=== PATIENT | male | born 1955 | race Caucasian/White ===

== ENCOUNTER 2016-12-22 12:22 | Emergency (ER) | payer BC ==
[2016-12-22 14:48] VITALS: BP 145/100
--- NOTE | 2016-12-22 15:10 | UC ---
Lianne Ruiz Erika, scribed for Maia Dias MD on 12/22/16 at 1454 . Psychiatric Complaint HPI - HPI Summary HPI Summary: Patient is a 61-year-old male presenting to [facility] with a CC of anxiety starting last night. Patient reports a Hx anxiety, and takes lexapro and buspar. He denies recent changes to these medications. Patient reports that anxiety started around when pt was talking about custodial last night. Patient reports he was unable to sleep last night due to the anxiety, and states it felt difficult to breathe and focus as well. Currently, patient denies any SOB and chest pain, and states he feels much improved. He denies any pain. Patient denies any thoughts of harming self or others. denies thoughts of feeling that pt is unsafe at home. Hx anxiety, HTN, prostatectomy due to prostate CA. - History Of Current Complaint Chief Complaint: UCGeneralIllness Stated Complaint: ANXIETY Hx Obtained From: Patient, Family/Funeral Assistant - Onset/Duration: Gradual Onset, Lasting Hours, Still Present - significantly improved Timing: Constant Severity Initially: Moderate Severity Currently: Mild Character: Anxious Aggravating Factor(s): Recent Stress Associated Signs And Symptoms: Sleep Disturbance Related History: Positive For: Prior Psychiatric Issues - anxiety - Risk Factor(s) Completed Suicide Risk Factors: Male - Allergies/Home Medications Allergies/Adverse Reactions: Allergies Allergy/AdvReac Type Severity Reaction Status Date / Time No Known Allergies Allergy Verified 12/22/16 14:29 Home Medications: Home Medications Escitalopram (NF) [Lexapro (NF)] 10 mg PO BEDTIME 12/22/16 [History Confirmed ] Valsartan/HCTZ 160/25(NF) [Diovan Hct 160/25(NF)] 1 tab PO DAILY 12/22/16 [ History Confirmed 12/22/16] busPIRone TAB* [Buspar TAB *] 15 mg PO BID 12/22/16 [History Confirmed 12/22/16] PMH/Surg Hx/FS Hx/Imm Hx Cardiovascular History Of: Reports: Hypertension Psychological History Of: Reports: Anxiety Cancer History Of: Reports: Prostate Cancer - Surgical History Surgical History: Yes Surgery Procedure, Year, and Place: 2014 Prostate removed - Family History Known Family History: Positive: Other - Prostate CA, father; Mother had anxiety issues - Social History Occupation: Employed Full-time Lives: With Family Alcohol Use: Daily Substance Use Type: None Smoking Status (MU): Never Smoked Tobacco - Immunization History Most Recent Influenza Vaccination: None Most Recent Tetanus Shot: UTD Most Recent Pneumonia Vaccination: None Review of Systems Constitutional: Negative Skin: Negative Eyes: Negative ENT: Negative Respiratory: Other - [place] like difficulty breathing, resolved Cardiovascular: Negative Gastrointestinal: Negative Genitourinary: Negative Motor: Negative Neurovascular: Negative Musculoskeletal: Negative Neurological: Negative Psychological: Anxious - with difficulty focusing and sleeping All Other Systems Reviewed And Are Negative: Yes Physical Exam Triage Information Reviewed: Yes Appearance: Well-Appearing, No Pain Distress, Well-Nourished Vital Signs: Initial Vital Signs Temp 98.7 F 12/22/16 14:32 Pulse 87 12/22/16 14:32 Resp 18 12/22/16 14:32 BP 147/113 12/22/16 14:32 Pulse Ox 100 12/22/16 14:32 elevated BP noted, manual BP similar, but decreased. Pt is asymptomatic. Vital Signs Reviewed: Yes Eyes: Positive: Conjunctiva Clear, Other: - PERRL, EOMI ENT: Positive: Normal ENT inspection Neck: Positive: Supple Respiratory: Positive: Lungs clear, Normal breath sounds, No respiratory distress Cardiovascular: Positive: RRR, No Murmur, Pulses Normal, Brisk Capillary Refill Musculoskeletal: Positive: Strength Intact, ROM Intact Neurological: Positive: Alert, Muscle Tone Normal Psychological Exam: Normal Skin Exam: Normal Psych Complaint Course/Dx - Differential Dx/Diagnosis Differential Diagnosis/HQI/PQRI: Acute Psychosis, Anxiety, Bipolar Disorder, Suicidal Ideation Provider Diagnoses: 1. Generalized anxiety disorder, acute exacerbation. 2. Blood pressure in poor control Discharge - Discharge Plan Condition: Stable Disposition: HOME Prescriptions: clonazePAM TAB(*) [Klonopin TAB(*)] 1 mg PO BEDTIME PRN #5 tab MDD 1 PRN Reason: Insomnia Patient Education Materials: Anxiety (ED) Referrals: Loyd Doherty MD [Medical Doctor] - 2 Days Additional Instructions: Dr. Dias has advised you to follow up for the hypertension and anxiety definitely this week. RETURN TO URGENT CARE FOR ANY NEW OR WORSENING SYMPTOMS. The documentation as recorded by the Lianne adame Erika accurately reflects the service I personally performed and the decisions made by Arun juarez Barbara J, MD.
== END 2016-12-22 15:00 | disposition home or self-care (01) ==
LOC: UCEAST 12:22
DX: F41.1 Generalized anxiety disorder (principal); I10 Essential (primary) hypertension; Z85.46 Personal history of malignant neoplasm of prostate
CPT/HCPCS: 99212; G0463

== ENCOUNTER 2017-04-15 07:49 | Emergency (ER) | payer BC ==
--- NOTE | 2017-04-15 08:12 | UC ---
General HPI - HPI Summary HPI Summary: complaint of insect of his left forearm that he noticed last night at 7PM unsure if it was a tick bite -didn't find a tick bite is extremely itchy concerned about getting lyme disease - History of Current Complaint Chief Complaint: ULYSSESkin Stated Complaint: TICK BITE Time Seen by Provider: 04/15/17 08:05 Hx Obtained From: Patient - Allergy/Home Medications Allergies/Adverse Reactions: Allergies Allergy/AdvReac Type Severity Reaction Status Date / Time No Known Allergies Allergy Verified 04/15/17 08:00 Home Medications: Home Medications Cetirizine* [ZyrTEC 10 MG TAB*] 1 tab PO DAILY 04/15/17 [History Confirmed 04/15] Multiple Vitamin [Multi Vitamin] 1 tab PO DAILY 04/15/17 [History Confirmed 08/22] PMH/Surg Hx/FS Hx/Imm Hx Previously Healthy: Yes Cardiovascular History: Hypertension Psychological History: Anxiety - Surgical History Surgical History: Yes Surgery Procedure, Year, and Place: 2014 Prostate removed; cyst removed from head - Family History Known Family History: Positive: Other - Prostate CA, father; Mother had anxiety issues Negative: Cardiac Disease, Hypertension, Diabetes - Social History Occupation: Employed Full-time Lives: With Family Alcohol Use: Daily Alcohol Amount: 1-2 drinks daily Substance Use Type: None Smoking Status (MU): Never Smoked Tobacco - Immunization History Most Recent Influenza Vaccination: None Most Recent Tetanus Shot: UTD Most Recent Pneumonia Vaccination: None Review of Systems Constitutional: Negative Skin: Rash Eyes: Negative ENT: Negative Respiratory: Negative Cardiovascular: Negative Gastrointestinal: Negative Genitourinary: Negative Motor: Negative Neurovascular: Negative Musculoskeletal: Negative Neurological: Negative Psychological: Negative All Other Systems Reviewed And Are Negative: Yes Physical Exam Triage Information Reviewed: Yes Appearance: Well-Appearing, No Pain Distress, Well-Nourished Vital Signs: Initial Vital Signs Temp 97.2 F 04/15/17 07:56 Pulse 78 04/15/17 07:56 Resp 16 04/15/17 07:56 BP 124/90 04/15/17 07:56 Pulse Ox 100 04/15/17 07:56 Vital Signs Reviewed: Yes Eyes: Positive: Conjunctiva Clear ENT: Positive: Pharynx normal, TMs normal Neck: Positive: No Lymphadenopathy Respiratory: Positive: Lungs clear, Normal breath sounds, No respiratory distress, No accessory muscle use Cardiovascular: Positive: RRR, No Murmur, Pulses Normal Abdomen Description: Positive: Nontender, Soft Bowel Sounds: Positive: Present Musculoskeletal: Positive: No Edema Neurological: Positive: Alert Psychological Exam: Normal Skin: Positive: rashes - left forearm- 1.5x1.5 cm area of erythema- no induration Course/Dx - Course Course Of Treatment: exam completed. rash appears to be insect bite without infection no evidence for tick bite. prophylaxis given as precaution - Differential Dx - Multi-Symptom Provider Diagnoses: insect bite Discharge - Discharge Plan Condition: Stable Disposition: HOME Prescriptions: DOXYcycline CAP(*) [DOXYcycline 100MG CAP(*)] 100 mg PO DAILY #2 cap Patient Education Materials: Tick Bite (ED), Insect Bite or Sting (ED) Referrals: No Primary Care Phys,NOPCP [Medical Doctor] - Loyd Doherty MD [Primary Care Provider] - Additional Instructions: Please start antibiotic as directed Increase fluids and rest Take acetaminophen or ibuprofen for fever or pain Please review your discharge instructions. If your symptoms do not improve please call your primary care provider or return to urgent care.
[2017-04-15 08:13] VITALS: BP 124/90
== END 2017-04-15 08:24 | disposition home or self-care (01) ==
LOC: UCEAST 07:49
DX: S50.862A Insect bite (nonvenomous) of left forearm, initial encounter (principal); W57.XXXA Bitten or stung by nonvenomous insect and other nonvenomous arthropods, initial encounter; Y93.9 Activity, unspecified; Y92.9 Unspecified place or not applicable; Y99.9 Unspecified external cause status
CPT/HCPCS: 99212; G0463

== ENCOUNTER 2019-02-25 13:59 | Emergency (ER) | payer BC ==
[2019-02-25 16:10] VITALS: BP 113/71
--- NOTE | 2019-02-25 16:16 | UC ---
Knee Pain HPI - HPI Summary HPI Summary: 63 yo male presents with RIGHT knee pain. He tells me that about a month ago he was doing a lot of yard work and constantly going from a squatting to a standing position. Since that time he has noticed stiffness to his right knee after periods of rest. No specific injury. Has not noticed any swelling or instability of the knee. Pain is located behind the kneecap. Has been taking tylenol with no relief. - History of Current Complaint Chief Complaint: UCLowerExtremity Stated Complaint: KNEE PAIN Time Seen by Provider: 02/25/19 16:15 Hx Obtained From: Patient Onset/Duration: Gradual Onset Severity Initially: Mild Severity Currently: Mild Pain Intensity: 3 Pain Scale Used: 0-10 Numeric - Allergies/Home Medications Allergies/Adverse Reactions: Allergies Allergy/AdvReac Type Severity Reaction Status Date / Time No Known Allergies Allergy Verified 02/25/19 16:10 PMH/Surg Hx/FS Hx/Imm Hx Cardiovascular History: Hypertension Psychological History: Anxiety, Depression - Surgical History Surgical History: Yes Surgery Procedure, Year, and Place: 2014 Prostate removed; cyst removed from head - Family History Known Family History: Positive: Other - Prostate CA, father; Mother had anxiety issues Negative: Cardiac Disease, Hypertension, Diabetes - Social History Occupation: Employed Full-time Lives: With Family Alcohol Use: Daily Alcohol Amount: 1-2 drinks daily Substance Use Type: None Smoking Status (MU): Never Smoked Tobacco - Immunization History Most Recent Influenza Vaccination: None Most Recent Tetanus Shot: UTD Most Recent Pneumonia Vaccination: None Review of Systems All Other Systems Reviewed And Are Negative: Yes Constitutional: Positive: Negative Skin: Positive: Negative Respiratory: Positive: Negative Cardiovascular: Positive: Negative Neurovascular: Positive: Negative Musculoskeletal: Positive: Other: - Right knee pain Neurological: Positive: Negative Psychological: Positive: Negative Physical Exam - Summary Physical Exam Summary: GENERAL: NAD. WDWN. No pain distress. SKIN: No rashes, sores, lesions, or open wounds. CHEST: No accessory muscle use. Breathing comfortably and in no distress. CV: . Pulses intact popliteal, PT, and DP. Cap refill <2seconds MSK: RIGHT KNEE: Mild patella crepitus. NTTP joint line. FROM. Strength 5/5. No edema or obvious bony deformities. Negative Lauri, A/P drawer, Cal[place], and varus/valgus stress. NEURO: Alert. Sensations intact and symmetric B/L LEs PSYCH: Age appropriate behavior. Triage Information Reviewed: Yes Vital Signs: Initial Vital Signs Temp 99.1 F 02/25/19 16:06 Pulse 95 02/25/19 16:06 Resp 16 02/25/19 16:06 BP 113/71 02/25/19 16:06 Pulse Ox 98 02/25/19 16:06 Vital Signs Reviewed: Yes Knee Pain Course/Dx - Course Course Of Treatment: Suspect patellofemoral syndrome and advised pt to continue tylenol and rest. Will refer to ortho and PT for further eval. - Differential Dx/Diagnosis Provider Diagnosis: Patellofemoral joint pain Discharge - Sign-Out/Discharge Documenting (check all that apply): Patient Departure All imaging exams completed and their final reports reviewed: No Studies - Discharge Plan Condition: Stable Disposition: HOME Patient Education Materials: Patellofemoral Pain Syndrome (ED) Referrals: Loyd Doherty MD [Primary Care Provider] - Malka Shen MD [Medical Doctor] - As Soon As Possible Additional Instructions: If you develop a fever, shortness of breath, chest pain, new or worsening symptoms - please call your PCP or go to the ED immediately. 1) Please call Orthopedics at the number below to schedule an appointment regarding your knee pain 2) May also schedule an appointment with Physical Therapy - you have been given a prescription for this today that you may take to a facility of your choosing. - Billing Disposition and Condition Condition: STABLE Disposition: Home
== END 2019-02-25 16:40 | disposition home or self-care (01) ==
LOC: UCEAST 13:59
DX: M25.561 Pain in right knee (principal); I10 Essential (primary) hypertension
CPT/HCPCS: 99211; G0463

== ENCOUNTER 2022-03-18 12:44 | Observation (INO) ==
[2022-03-18] MEDS ORDERED: NS 0.9% 1000 ml BAG 1,000 ML IV ONE (13:49)
[2022-03-18 14:13] LABS: ABS Basophils 0.1 10^3/ul (0-0.2); ABS Eosinophils 0.1 10^3/ul (0-0.6); ABS Lymphocytes 1.2 10^3/ul (1.0-4.8); ABS Monocytes 0.5 10^3/ul (0-0.8); ABS Neutrophils 2.8 10^3/ul (1.5-7.7); Eosinophil % 1.3 %; Hematocrit 34 % (42-52); Hemoglobin 11.8 g/dL (14.0-18.0); Lymphocyte % 26.1 %; Mean Corpuscular HGB Conc 34 g/dL (31-36); Mean Corpuscular Hemoglobin 30 pg (27-31); Mean Corpuscular Volume 89 fL (80-94); Mean Platelet Volume 8.4 fL (7.4-10.4); Nucleated Red Blood Cells % 0.1; Platelet Count 206 10^3/uL (150-450); Red Blood Count 3.88 10^6 /uL (4.18-5.48); Red Cell Distribution Width 13 % (10-15); White Blood Count 4.7 10^3/uL (3.5-10.8)
[2022-03-18 14:49] LABS: PSA Screening Total < 0.008 ng/mL (0-4.000)
[2022-03-18 14:52] LABS: ALT 31 U/L (7-52); AST 17 U/L (13-39); Albumin 3.7 g/dL (3.2-5.2); Albumin/Globulin Ratio 1.5 (1-3); Alcohol, S < 13 mg/dL (<13); Alkaline Phosphatase 93 U/L (35-149); Anion Gap 8 mmol/L (2-11); Blood Urea Nitrogen 29 mg/dL (6-24); C Reactive Protein 8.92 mg/L (<8.01); CO2 Carbon Dioxide 22 mmol/L (22-32); Calcium 8.9 mg/dL (8.6-10.3); Chloride 111 mmol/L (101-111); Globulin 2.5 g/dL (2-4); Glucose 88 mg/dL (70-100); Magnesium 1.9 mg/dL (1.9-2.7); Potassium 4.1 mmol/L (3.5-5.0); Sodium 141 mmol/L (135-145); Total Protein 6.2 g/dL (6.4-8.9); eGFR CKD-EPI 45.4 (>60)
[2022-03-18 14:53] LABS: TSH Ultra Thyroid Stim Horm 2.23 mcIU/mL (0.34-5.60)
[2022-03-18 15:24] LABS: Urine Appearance Clear; Urine Bacteria Absent (Absent); Urine Bilirubin Negative (Negative); Urine Blood Negative (Negative); Urine Color Yellow; Urine Glucose Negative (Negative); Urine Ketones 1+ (Negative); Urine Nitrite Negative (Negative); Urine Protein 1+(30 mg/dL) (Negative); Urine Red Blood Cell 2+(6-10/hpf) (Absent); Urine Specific Gravity 1.026 (1.002-1.030); Urine Urobilinogen Positive (Negative); Urine White Blood Cell Trace(0-5/hpf) (Absent)
[2022-03-18 15:43] LABS: Erythrocyte Sed Rate 30 mm/Hr (0-19)
[2022-03-18] MEDS ORDERED: Enoxaparin 40 MG/0.4 ML SYR SUBCUT SCH (17:00)
[2022-03-18 17:41] LABS: Folate 14.43 ng/mL (5.90-24.80)
[2022-03-18 17:43] LABS: Vitamin B12 387 pg/mL (180-914)
[2022-03-18] MEDS ORDERED: Acyclovir IV 800 MG in NS 0.9% 250 ml 250 ML IVPB ONE (18:30)
[2022-03-19] MEDS ORDERED: Acyclovir IV 800 MG in NS 0.9% 250 ml 250 ML IVPB SCH ×2 (05:00→05:30)
[2022-03-19 06:03] LABS: ABS Eosinophils 0.1 10^3/ul (0-0.6); ABS Lymphocytes 1.2 10^3/ul (1.0-4.8); ABS Monocytes 0.5 10^3/ul (0-0.8); ABS Neutrophils 2.8 10^3/ul (1.5-7.7); Eosinophil % 2.1 %; Hematocrit 31 % (42-52); Hemoglobin 10.9 g/dL (14.0-18.0); Lymphocyte % 25.6 %; Mean Corpuscular HGB Conc 35 g/dL (31-36); Mean Corpuscular Hemoglobin 31 pg (27-31); Mean Corpuscular Volume 89 fL (80-94); Mean Platelet Volume 7.8 fL (7.4-10.4); Platelet Count 194 10^3/uL (150-450); Red Cell Distribution Width 13 % (10-15); White Blood Count 4.7 10^3/uL (3.5-10.8)
[2022-03-19 06:32] LABS: HDL Cholesterol 16.9 mg/dL
[2022-03-19 06:33] LABS: Calcium 8.4 mg/dL (8.6-10.3); Potassium 4.4 mmol/L (3.5-5.0); eGFR CKD-EPI 41.5 (>60)
[2022-03-19] MEDS ORDERED: Iohexol 350 (CONTRAST) 500 ML MDV IV ONE (06:39)
[2022-03-19] MEDS ORDERED: Lactated Ringers 1000 ml BAG 1,000 ML IV ONE (06:56)
[2022-03-19 09:33] LABS: Ferritin 608.6 ng/mL (24-336)
[2022-03-19] MEDS ORDERED: Enoxaparin 40 MG/0.4 ML SYR SUBCUT SCH (17:00)
[2022-03-20 06:02] LABS: ABS Eosinophils 0.1 10^3/ul (0-0.6); ABS Lymphocytes 1.5 10^3/ul (1.0-4.8); ABS Monocytes 0.5 10^3/ul (0-0.8); ABS Neutrophils 4.2 10^3/ul (1.5-7.7); Eosinophil % 1.8 %; Hematocrit 36 % (42-52); Hemoglobin 12.1 g/dL (14.0-18.0); Lymphocyte % 23.3 %; Mean Corpuscular HGB Conc 34 g/dL (31-36); Mean Corpuscular Hemoglobin 30 pg (27-31); Mean Corpuscular Volume 90 fL (80-94); Nucleated Red Blood Cells % 0.1; Platelet Count 290 10^3/uL (150-450); Red Blood Count 4.01 10^6 /uL (4.18-5.48); Red Cell Distribution Width 13 % (10-15); White Blood Count 6.4 10^3/uL (3.5-10.8)
[2022-03-20 06:31] LABS: Potassium 3.7 mmol/L (3.5-5.0); eGFR CKD-EPI 43.5 (>60)
[2022-03-20 11:17] VITALS: BP 147/95
[2022-03-21 01:02] LABS: Anaplasma phagocytophilum Negative (Negative); B. miyamotoi PCR, B Negative (Negative); Babesia divergens/MO-1 Negative (Negative); Babesia ducani Negative (Negative); Ehrlichia chaffeensis Negative (Negative); Ehrlichia ewingii/canis Negative (Negative); Ehrlichia muris eauclairensis Negative (Negative)
== END 2022-03-20 15:33 | disposition home or self-care (01) ==
LOC: EDHOLD 12:44 → ED 12:44 → SUATTDRO 16:37 → EDHOLD 18:35 → MEDTELE 19:13
PROVIDERS: ADMIT Student in an Organized Health Care Education/Training Program; ATTEND Internal Medicine

== ENCOUNTER 2022-11-30 03:28 | Inpatient (IN) ==
[2022-11-30 04:37] LABS: Urine Appearance Clear; Urine Bilirubin Negative (Negative); Urine Blood Negative (Negative); Urine Color Yellow; Urine Glucose Negative (Negative); Urine Ketones Negative (Negative); Urine Nitrite Negative (Negative); Urine Protein 3+(>=500 mg/dL) (Negative); Urine Specific Gravity 1.025 (1.002-1.030); Urine Urobilinogen Negative (Negative)
[2022-11-30 04:39] LABS: Hematocrit 34 % (42-52); Hemoglobin 11.4 g/dL (14.0-18.0); Mean Corpuscular HGB Conc 34 g/dL (31-36); Mean Corpuscular Hemoglobin 30 pg (27-31); Mean Corpuscular Volume 90 fL (80-94); Mean Platelet Volume 8.9 fL (7.4-10.4); Platelet Count 63 10^3/uL (150-450); Red Blood Count 3.79 10^6 /uL (4.18-5.48); Red Cell Distribution Width 14 % (10-15); White Blood Count 5.9 10^3/uL (3.5-10.8)
[2022-11-30 04:40] LABS: Urine Bacteria Absent (Absent); Urine Red Blood Cell Absent (Absent); Urine White Blood Cell Trace(0-5/hpf) (Absent)
[2022-11-30 04:45] LABS: Activated Partial Thrombo Time 27.5 seconds (26.0-38.0); INR 1.5 (0.88-1.18)
[2022-11-30 05:11] LABS: Albumin 3.5 g/dL (3.2-5.2); Albumin/Globulin Ratio 1.4 (1-3); C Reactive Protein 163.38 mg/L (<8.01); Calcium 8.7 mg/dL (8.6-10.3); Creatinine, Serum 1.72 mg/dL (0.67-1.17); Globulin 2.5 g/dL (2-4); Potassium 3.8 mmol/L (3.5-5.0); Total Bilirubin 1.4 mg/dL (0.2-1.0); eGFR CKD-EPI 43.6 (>60)
[2022-11-30 05:53] LABS: ABS Lymphocytes 0.7 10^3/ul (1.0-4.8); ABS Monocytes 1.5 10^3/ul (0-0.8); ABS Neutrophils 3.6 10^3/ul (1.5-7.7); Eosinophil % 0.1 %; Lymphocyte % 11.4 %; Nucleated Red Blood Cells % 0.1; RBC Morphology Normal (Normal)
[2022-11-30 05:56] LABS: High Sensitivity Troponin 1 Hr 7 pg/mL (<20)
[2022-11-30] MEDS ORDERED: cefTRIAXone 1 gm/50 mL D5W 1 GM/50 ML BAG IV ONE (06:55)
[2022-11-30] MEDS ORDERED: Azithromycin 500 mg/250 ml NS 500 MG/250 ML BAG IVPB ONE (06:55)
[2022-11-30 07:01] LABS: RBC Parasite Smear No Parasites Seen (No Parasite)
[2022-11-30] MEDS ORDERED: Lactated Ringers 1000 ml BAG 1,000 ML IV ONE (07:12)
[2022-11-30] MEDS ORDERED: Iodixanol (CONTRAST) 320 MG/ML 100 ML SDV IV ONE (07:48)
[2022-11-30] MEDS ORDERED: Polyethylene Glycol 3350 17 GM PACKET PO PRN (11:11)
[2022-11-30] MEDS ORDERED: Magnesium Hydroxide LIQ 30 ML UDC PO PRN (11:11)
[2022-11-30] MEDS ORDERED: Senna TAB 8.6 mg TAB PO PRN (11:11)
[2022-11-30] MEDS ORDERED: cefTRIAXone 1 gm/50 mL D5W 1 GM/50 ML BAG IV SCH (11:15)
[2022-11-30] MEDS ORDERED: NS 0.9% 1000 ml BAG 1,000 ML IV ONE ×2 (11:15→15:50)
[2022-11-30 12:40] LABS: TSH Ultra Thyroid Stim Horm 2.04 mcIU/mL (0.34-5.60)
[2022-11-30] MEDS: NS 0.9% 1000 ml BAG 1,000 ML IV SCH (12:57)
[2022-11-30] MEDS ORDERED: PAIN RELIEVING RUB (MENTHOL/SALICYLATE) 1 APPLIC TUBE TOPICAL PRN (16:09)
[2022-11-30] MEDS: Enoxaparin 40 MG/0.4 ML SYR SUBCUT SCH (21:34)
[2022-12-01] MEDS: NS 0.9% 1000 ml BAG 1,000 ML IV SCH (02:34)
[2022-12-01 06:21] LABS: Hematocrit 29 % (42-52); Hemoglobin 9.7 g/dL (14.0-18.0); Mean Corpuscular HGB Conc 34 g/dL (31-36); Mean Corpuscular Hemoglobin 30 pg (27-31); Mean Corpuscular Volume 89 fL (80-94); Mean Platelet Volume 8.9 fL (7.4-10.4); Platelet Count 50 10^3/uL (150-450); Red Blood Count 3.27 10^6 /uL (4.18-5.48); Red Cell Distribution Width 14 % (10-15); White Blood Count 5.5 10^3/uL (3.5-10.8)
[2022-12-01 06:43] LABS: Calcium 7.8 mg/dL (8.6-10.3); Creatinine, Serum 1.48 mg/dL (0.67-1.17); Potassium 3.8 mmol/L (3.5-5.0); eGFR CKD-EPI 52.2 (>60)
[2022-12-01] MEDS ORDERED: cefTRIAXone 1 gm/50 mL D5W 1 GM/50 ML BAG IV SCH (08:00)
[2022-12-01] MEDS ORDERED: cefTRIAXone 1 GM Q24H (ADVAN) IVPB SCH (08:00)
[2022-12-01 08:39] LABS: RBC Morphology Normal (Normal)
[2022-12-01 08:40] LABS: ABS Lymphocytes 0.5 10^3/ul (1.0-4.8); ABS Monocytes 1.9 10^3/ul (0-0.8); ABS Neutrophils 3.1 10^3/ul (1.5-7.7); Eosinophil % 0.1 %; Lymphocyte % 8.6 %
[2022-12-01] MEDS: Lactated Ringers 1000 ml BAG 1,000 ML IV SCH ×2 (15:28→21:54)
[2022-12-01] MEDS: Enoxaparin 40 MG/0.4 ML SYR SUBCUT SCH (21:44)
[2022-12-01] MEDS: DOXYcycline 100 MG in NS 0.9% 250 ml 250 ML IVPB SCH (22:49)
[2022-12-01 23:14] LABS: Hematocrit 28 % (42-52); Hemoglobin 9.4 g/dL (14.0-18.0); Mean Corpuscular HGB Conc 33 g/dL (31-36); Mean Corpuscular Hemoglobin 29 pg (27-31); Mean Corpuscular Volume 88 fL (80-94); Mean Platelet Volume 8.5 fL (7.4-10.4); Platelet Count 48 10^3/uL (150-450); Red Blood Count 3.23 10^6 /uL (4.18-5.48); Red Cell Distribution Width 14 % (10-15); White Blood Count 4.3 10^3/uL (3.5-10.8)
[2022-12-01 23:41] LABS: Calcium 7.8 mg/dL (8.6-10.3); Creatinine, Serum 1.46 mg/dL (0.67-1.17); Potassium 3.7 mmol/L (3.5-5.0)
[2022-12-01] MEDS ORDERED: Lactated Ringers 1000 ml BAG 1,000 ML IV ONE (23:51)
[2022-12-02] MEDS: Acetaminophen IV 1 GM/100ML 1,000 MG/100 ML BAG IV PRN ×3 (05:30→23:38)
[2022-12-02] MEDS: Lactated Ringers 1000 ml BAG 1,000 ML IV SCH ×2 (05:53→09:48)
[2022-12-02] MEDS ORDERED: Lactated Ringers 1000 ml BAG 500 ML IV ONE (06:11)
[2022-12-02 08:39] LABS: Hematocrit 27 % (42-52); Hemoglobin 9.1 g/dL (14.0-18.0); Mean Corpuscular HGB Conc 33 g/dL (31-36); Mean Corpuscular Hemoglobin 29 pg (27-31); Mean Corpuscular Volume 88 fL (80-94); Mean Platelet Volume 8.1 fL (7.4-10.4); Platelet Count 43 10^3/uL (150-450); Red Blood Count 3.12 10^6 /uL (4.18-5.48); Red Cell Distribution Width 14 % (10-15); White Blood Count 4.4 10^3/uL (3.5-10.8)
[2022-12-02 09:17] LABS: RBC Morphology Normal (Normal)
[2022-12-02 09:18] LABS: ABS Lymphocytes 0.4 10^3/ul (1.0-4.8); ABS Monocytes 1.3 10^3/ul (0-0.8); ABS Neutrophils 2.7 10^3/ul (1.5-7.7); Calcium 7.9 mg/dL (8.6-10.3); Creatinine, Serum 1.45 mg/dL (0.67-1.17); Eosinophil % 0.1 %; Lymphocyte % 8.4 %; Potassium 3.9 mmol/L (3.5-5.0); eGFR CKD-EPI 53.5 (>60)
[2022-12-02] MEDS: DOXYcycline 100 MG in NS 0.9% 250 ml 250 ML IVPB SCH (09:46)
[2022-12-02 13:20] LABS: RBC Parasite Smear No Parasites Seen (No Parasite)
[2022-12-02 21:36] LABS: PCO2 Arterial 24 mmHg (35-45); PO2 Arterial 103 mmHg (80-100)
[2022-12-02] MEDS: Morphine 2 MG/ML SYRINGE IV PRN (23:32)
[2022-12-03] MEDS ORDERED: Dexmedetomidine 1,000 MCG in NS 0.9% 250 ml 240 ML IV SCH (01:00)
[2022-12-03 01:22] LABS: Hematocrit 25 % (42-52); Hemoglobin 8.4 g/dL (14.0-18.0); Mean Corpuscular HGB Conc 33 g/dL (31-36); Mean Corpuscular Hemoglobin 29 pg (27-31); Mean Corpuscular Volume 88 fL (80-94); Mean Platelet Volume 8.1 fL (7.4-10.4); Platelet Count 40 10^3/uL (150-450); Red Cell Distribution Width 14 % (10-15); White Blood Count 3.9 10^3/uL (3.5-10.8)
[2022-12-03 01:43] LABS: ABS Lymphocytes 0.3 10^3/ul (1.0-4.8); ABS Monocytes 1.1 10^3/ul (0-0.8); ABS Neutrophils 2.5 10^3/ul (1.5-7.7); Lymphocyte % 7.7 %; RBC Morphology Normal (Normal)
[2022-12-03 01:58] LABS: Calcium 8.2 mg/dL (8.6-10.3); Creatinine, Serum 1.45 mg/dL (0.67-1.17); Magnesium 1.1 mg/dL (1.9-2.7); eGFR CKD-EPI 53.5 (>60)
[2022-12-03] MEDS ORDERED: NORMOSOL-R pH 7.4 1000 mL BAG 500 ML IV SCH (02:00)
[2022-12-03 02:02] LABS: Phosphorus 3.1 mg/dL (2.5-5.0)
[2022-12-03 02:04] LABS: Activated Partial Thrombo Time 26.5 seconds (26.0-38.0); INR 1.53 (0.88-1.18)
[2022-12-03] MEDS ORDERED: Magnesium Sulf 4 GM/100 ML IV 4,000 MG/100 ML BAG IVPB ONE (02:47)
[2022-12-03 05:09] LABS: Hematocrit 25 % (42-52); Hemoglobin 8.2 g/dL (14.0-18.0); Mean Corpuscular HGB Conc 33 g/dL (31-36); Mean Corpuscular Hemoglobin 30 pg (27-31); Mean Corpuscular Volume 89 fL (80-94); Mean Platelet Volume 8.5 fL (7.4-10.4); Platelet Count 41 10^3/uL (150-450); Red Blood Count 2.79 10^6 /uL (4.18-5.48); Red Cell Distribution Width 15 % (10-15); White Blood Count 3.8 10^3/uL (3.5-10.8)
[2022-12-03 05:36] LABS: ABS Lymphocytes 0.3 10^3/ul (1.0-4.8); ABS Neutrophils 2.5 10^3/ul (1.5-7.7); Eosinophil % 0.1 %; Lymphocyte % 8.1 %; Nucleated Red Blood Cells % 0.1; RBC Morphology Normal (Normal)
[2022-12-03 05:41] LABS: Albumin 2.3 g/dL (3.2-5.2); Potassium 4.4 mmol/L (3.5-5.0); Total Bilirubin 1.4 mg/dL (0.2-1.0)
[2022-12-03 05:47] LABS: Albumin/Globulin Ratio 1.2 (1-3); Creatinine, Serum 1.39 mg/dL (0.67-1.17); Globulin 1.9 g/dL (2-4); Total Protein 4.2 g/dL (6.4-8.9); eGFR CKD-EPI 56.3 (>60)
[2022-12-03] MEDS ORDERED: Succinylcholine 200 mg VIAL 20 mg/ml 10 ml VIAL (200 mg) ONE (10:16)
[2022-12-03] MEDS ORDERED: Rocuronium 50 mg VIAL 10 mg/ml 5 ml VIAL (50 mg) ONE ×3 (10:17→22:30)
[2022-12-03] MEDS ORDERED: Norepinephrine 16MCG/ML BAGD5W 4,000 MCG/250 ML BAG IV ONE (10:24)
[2022-12-03] MEDS ORDERED: Propofol 10 mg/ml 100 ML BTL 1,000 MG/100 ML BTL ONE (10:24)
[2022-12-03] MEDS: Norepinephrine 16MCG/ML BAGD5W 4,000 MCG/250 ML BAG IV SCH ×3 (13:54→22:44)
[2022-12-03] MEDS: Propofol 10 mg/ml 100 ML BTL 1,000 MG/100 ML BTL IV SCH ×4 (13:55→23:18)
[2022-12-03 13:56] LABS: TB2 Ag minus Nil Result -0.06 IU/mL
[2022-12-03] MEDS ORDERED: PROGUANIL PO SCH (14:00)
[2022-12-03] MEDS ORDERED: ATOVAQUONE PO SCH (14:00)
[2022-12-03] MEDS ORDERED: Norepinephrine 16MCG/ML BAG NS 4,000 MCG/250 ML BAG IV SCH (14:00)
[2022-12-03 14:11] LABS: QuantiferonTb Gold Plus Result Negative (Negative)
[2022-12-03] MEDS ORDERED: cefTRIAXone 2 gm/50 mL D5W 2 GM/50 ML BAG IV SCH ×2 (14:15→16:00)
[2022-12-03 14:29] LABS: Cytomegalovirus IgG Antibody Positive (Negative)
[2022-12-03] MEDS ORDERED: Vancomycin per Pharmacy 1 EA NOTE FOLLOW UP PRN (14:32)
[2022-12-03] MEDS: Vancomycin 1,500 MG in NS 0.9% 250 ml 250 ML IVPB ONE ×2 (14:46→15:09)
[2022-12-03 14:54] LABS: Mean Platelet Volume 8.7 fL (7.4-10.4); Platelet Count 49 10^3/uL (150-450)
[2022-12-03] MEDS: Azithromycin 500 mg/250 ml NS 500 MG/250 ML BAG IVPB SCH (15:33)
[2022-12-03] MEDS ORDERED: Acetaminophen IV 1 GM/100ML 1,000 MG/100 ML BAG IV PRN (15:52)
[2022-12-03] MEDS ORDERED: fentaNYL INFUSION 50 mcg/mL VL 2,500 MCG/50 ML VIAL IV SCH (16:00)
[2022-12-03 16:08] LABS: RBC Parasite Smear No Parasites Seen (No Parasite)
[2022-12-03] MEDS ORDERED: fentaNYL 100 mcg/2 ml 50 MCG/ML VIAL ONE (16:16)
[2022-12-03] MEDS: cefTRIAXone 2 GM ADDV.VIAL 2 GM in NS 0.9% 100 ml BAG 100 ML IV SCH (16:31)
[2022-12-03 17:07] LABS: Body Fluid Source Cerebral Spinal
[2022-12-03 17:22] LABS: CSF Glucose 68 mg/dL (40-70)
[2022-12-03] MEDS ORDERED: fentaNYL 100 mcg/2 ml 50 MCG/ML VIAL IV SLOW PU PRN (17:23)
[2022-12-03] MEDS: Pantoprazole VIAL 40 MG VIAL IV SCH (17:37)
[2022-12-03] MEDS ORDERED: Enoxaparin 40 MG/0.4 ML SYR ONE (17:54)
[2022-12-03] MEDS: Enoxaparin 40 MG/0.4 ML SYR SUBCUT SCH (17:56)
[2022-12-03 18:31] LABS: Body Fluid Appearance Clear; Body Fluid Color Colorless; Body Fluid WBC 1 /mcL; CSF Tube # 4
[2022-12-03 18:52] LABS: Body Fluid Mono 29 %; Body Fluid Total Cells Counted 21
[2022-12-03] MEDS: Chlorhexidine MOUTHWASH 0.12% 15 ML UDC SWISH SPIT SCH (20:08)
[2022-12-03] MEDS: Morphine 2 MG/ML SYRINGE IV PRN (21:51)
[2022-12-03] MEDS ORDERED: Midazolam 2 mg/2 ml VIAL 1 mg/ml 2 ml VIAL (2 mg) ONE (22:21)
[2022-12-03] MEDS ORDERED: Etomidate 40 mg/20 ml (2 MG/ML) 20 ml VIAL (40 mg) ONE (22:30)
[2022-12-03] MEDS: Midazolam 2 mg/2 ml VIAL 1 mg/ml 2 ml VIAL (2 mg) IV SLOW PU PRN (22:36)
[2022-12-04] MEDS: Norepinephrine 16MCG/ML BAGD5W 4,000 MCG/250 ML BAG IV SCH ×3 (01:32→06:14)
[2022-12-04] MEDS: Midazolam 2 mg/2 ml VIAL 1 mg/ml 2 ml VIAL (2 mg) IV SLOW PU PRN ×4 (01:42→15:26)
[2022-12-04] MEDS ORDERED: Acetaminophen IV 1 GM/100ML 1,000 MG/100 ML BAG IV PRN (02:04)
[2022-12-04] MEDS ORDERED: Midazolam 5 mg/5 ml VIAL 1 mg/ml 5 ml VIAL (5 mg) ONE (02:30)
[2022-12-04] MEDS ORDERED: Midazolam 5 mg/5 ml VIAL 1 mg/ml 5 ml VIAL (5 mg) IV SLOW PU ONE (02:37)
[2022-12-04] MEDS ORDERED: NORMOSOL-R pH 7.4 1000 mL BAG 500 ML IV SCH ×2 (03:00→05:00)
[2022-12-04] MEDS: Propofol 10 mg/ml 100 ML BTL 1,000 MG/100 ML BTL IV SCH ×6 (03:34→23:51)
[2022-12-04] MEDS: fentaNYL 100 mcg/2 ml 50 MCG/ML VIAL IV SLOW PU PRN ×5 (03:58→17:20)
[2022-12-04] MEDS: cefTRIAXone 2 GM ADDV.VIAL 2 GM in NS 0.9% 100 ml BAG 100 ML IV SCH ×2 (04:10→17:32)
[2022-12-04 04:13] LABS: Hematocrit 25 % (42-52); Hemoglobin 8.4 g/dL (14.0-18.0); Mean Corpuscular HGB Conc 33 g/dL (31-36); Mean Corpuscular Hemoglobin 29 pg (27-31); Mean Corpuscular Volume 88 fL (80-94); Mean Platelet Volume 7.9 fL (7.4-10.4); Platelet Count 49 10^3/uL (150-450); Red Blood Count 2.88 10^6 /uL (4.18-5.48); Red Cell Distribution Width 15 % (10-15); White Blood Count 5.9 10^3/uL (3.5-10.8)
[2022-12-04 04:50] LABS: Calcium 7.9 mg/dL (8.6-10.3); Creatinine, Serum 2.05 mg/dL (0.67-1.17); Magnesium 2.2 mg/dL (1.9-2.7); eGFR CKD-EPI 35.3 (>60)
[2022-12-04 05:40] LABS: Toxic Granulation 2+
[2022-12-04 05:41] LABS: RBC Morphology Normal (Normal)
[2022-12-04 05:42] LABS: ABS Lymphocytes 0.5 10^3/ul (1.0-4.8); ABS Monocytes 1.3 10^3/ul (0-0.8); Eosinophil % 0.1 %; Lymphocyte % 8.6 %; Nucleated Red Blood Cells % 0.3
[2022-12-04] MEDS ORDERED: Vancomycin Random Level NOTE FOLLOW UP ONE (06:00)
[2022-12-04] MEDS: NORMOSOL-R pH 7.4 1000 mL BAG 1,000 ML IV SCH ×3 (06:15→23:50)
[2022-12-04 06:24] LABS: Vancomycin Trough 10.1 mcg/mL
[2022-12-04] MEDS: Chlorhexidine MOUTHWASH 0.12% 15 ML UDC SWISH SPIT SCH ×3 (07:45→21:58)
[2022-12-04] MEDS: Pantoprazole VIAL 40 MG VIAL IV SCH (07:45)
[2022-12-04 08:01] LABS: Albumin 2.3 g/dL (3.2-5.2); Albumin/Globulin Ratio 1.2 (1-3); Direct Bilirubin 1.8 mg/dL (0.03-0.18); Indirect Bilirubin 0.8 mg/dL (0.3-1.0); Total Bilirubin 2.6 mg/dL (0.2-1.0); Total Protein 4.3 g/dL (6.4-8.9)
[2022-12-04] MEDS: Norepinephrine *QUAD STRENGTH* 16 mg/250 mL NS per protocol IV SCH ×3 (08:22→18:34)
[2022-12-04] MEDS ORDERED: PROGUANIL PO SCH (09:00)
[2022-12-04] MEDS ORDERED: ATOVAQUONE PO SCH (09:00)
[2022-12-04 09:49] LABS: Albumin 2.2 g/dL (3.4-4.7); Albumin/Globulin Ratio 0.84; Gamma Globulin 0.9 g/dL (0.6-1.6); Total Protein(PEP) 4.8 g/dL (6.3 - 7.9)
[2022-12-04 10:12] LABS: Urine Benzodiazepine Screen Presumptive Positive (None Detect); Urine Buprenorphine Screen None Detected (None Detect); Urine Cannabinoids Screen None Detected (None Detect); Urine Fentanyl Screen Presumptive Positive (None Detect); Urine Hydrocodone Screen None Detected (None Detect); Urine Opiates Screen Presumptive Positive (None Detect)
[2022-12-04] MEDS: DOXYcycline 100 MG in NS 0.9% 250 ml 250 ML IVPB SCH ×2 (10:52→22:23)
[2022-12-04] MEDS: Azithromycin 500 mg/250 ml NS 500 MG/250 ML BAG IVPB SCH (14:28)
[2022-12-04] MEDS: Enoxaparin 40 MG/0.4 ML SYR SUBCUT SCH (17:20)
[2022-12-05] MEDS: Propofol 10 mg/ml 100 ML BTL 1,000 MG/100 ML BTL IV SCH ×3 (02:50→20:00)
[2022-12-05 04:24] LABS: PCO2 Arterial 21 mmHg (35-45)
[2022-12-05 04:29] LABS: PO2 Arterial 52 mmHg (80-100)
[2022-12-05] MEDS: cefTRIAXone 2 GM ADDV.VIAL 2 GM in NS 0.9% 100 ml BAG 100 ML IV SCH ×2 (04:34→16:16)
[2022-12-05 05:24] LABS: PCO2 Arterial 22 mmHg (35-45)
[2022-12-05 05:25] LABS: PO2 Arterial 54 mmHg (80-100)
[2022-12-05 05:37] LABS: Hematocrit 24 % (42-52); Mean Corpuscular HGB Conc 34 g/dL (31-36); Mean Corpuscular Hemoglobin 30 pg (27-31); Mean Corpuscular Volume 89 fL (80-94); Mean Platelet Volume 7.8 fL (7.4-10.4); Platelet Count 51 10^3/uL (150-450); Red Blood Count 2.69 10^6 /uL (4.18-5.48); Red Cell Distribution Width 15 % (10-15); White Blood Count 6.2 10^3/uL (3.5-10.8)
[2022-12-05] MEDS: Dextrose 50% Syringe 50 ml 25 GM/50 ML SYRINGE IV PUSH PRN (05:40)
[2022-12-05] MEDS ORDERED: Hydrocortisone INJ 100 MG/2ML 2 ML VIAL IV ONE (05:40)
[2022-12-05 05:52] LABS: Albumin/Globulin Ratio 1.1 (1-3); Calcium 7.6 mg/dL (8.6-10.3); Creatinine, Serum 2.5 mg/dL (0.67-1.17); Globulin 1.8 g/dL (2-4); Magnesium 2.5 mg/dL (1.9-2.7); Phosphorus 5.9 mg/dL (2.5-5.0); Potassium 4.8 mmol/L (3.5-5.0); Total Protein 3.8 g/dL (6.4-8.9); eGFR CKD-EPI 27.8 (>60)
[2022-12-05] MEDS ORDERED: Dextrose 50% Syringe 50 ml 25 GM/50 ML SYRINGE ONE (05:57)
[2022-12-05] MEDS ORDERED: PHENYLEPHRINE DRIP IVPREMIX 50 MG/250 ML BAG IV SCH (06:00)
[2022-12-05] MEDS ORDERED: NORMOSOL-R pH 7.4 1000 mL BAG 500 ML IV SCH (06:00)
[2022-12-05] MEDS ORDERED: Phenylephrine IV 10 MG/ML 1 ml VIAL ONE (06:03)
[2022-12-05] MEDS ORDERED: Sodium Bicarbonate 8.4% SYR 50 ml SYRINGE ONE (06:04)
[2022-12-05] MEDS: Phenylephrine DRIP 0.2 MG/ML in NS 0.9% 250 ML (PHA mix) IV SCH ×4 (06:07→23:02)
[2022-12-05] MEDS: Sodium Bicarbonate 8.4% SYR 50 ml SYRINGE IV ONE ×2 (06:15→06:46)
[2022-12-05 06:33] LABS: PCO2 Arterial 23 mmHg (35-45); PO2 Arterial 186 mmHg (80-100)
[2022-12-05] MEDS: Sodium Bicarb 8.4% Vial 50 ML 150 MEQ in D5W 1000 ml BAG 850 ML IV SCH ×2 (06:46→14:52)
[2022-12-05 06:52] LABS: INR 1.25 (0.88-1.18)
[2022-12-05 07:06] LABS: Flag, M-protein Isotype Negative (Negative)
[2022-12-05] MEDS: NORMOSOL-R pH 7.4 1000 mL BAG 1,000 ML IV SCH ×2 (07:09→17:22)
[2022-12-05] MEDS: Norepinephrine *QUAD STRENGTH* 16 mg/250 mL NS per protocol IV SCH (07:09)
[2022-12-05] MEDS ORDERED: Sulfur Hexaflouride MICROSPHR 25 MG VIAL ONE (08:09)
[2022-12-05] MEDS: Pantoprazole VIAL 40 MG VIAL IV SCH (08:34)
[2022-12-05] MEDS: Chlorhexidine MOUTHWASH 0.12% 15 ML UDC SWISH SPIT SCH ×3 (08:34→21:40)
[2022-12-05 09:27] LABS: RBC Morphology Normal (Normal); Toxic Granulation 1+
[2022-12-05 09:29] LABS: ABS Lymphocytes 0.6 10^3/ul (1.0-4.8); ABS Neutrophils 5.1 10^3/ul (1.5-7.7)
[2022-12-05 09:30] LABS: ABS Eosinophils 0.1 10^3/ul (0-0.6); ABS Lymphocytes 0.6 10^3/ul (1.0-4.8); ABS Monocytes 1.2 10^3/ul (0-0.8); ABS Neutrophils 4.3 10^3/ul (1.5-7.7); Eosinophil % 1.2 %; Nucleated Red Blood Cells % 0.2
[2022-12-05] MEDS: DOXYcycline 100 MG in NS 0.9% 250 ml 250 ML IVPB SCH ×2 (10:13→21:40)
[2022-12-05 11:54] LABS: Cryoglobulin Negative %ppt (Negative)
[2022-12-05 12:00] LABS: JO-1 Antibody <0.2 U; RNP Antibody, IgG <0.2 U; SS-A/Ro Antibody <0.2 U; SS-B/La Antibody <0.2 U; Scl 70 Ab, IgG, S <0.2 U; Sm (Smith) IgG Antibody <0.2 U
[2022-12-05] MEDS: fentaNYL 100 mcg/2 ml 50 MCG/ML VIAL IV SLOW PU PRN (12:01)
[2022-12-05 12:03] LABS: Albumin/Globulin Ratio 1.2 (1-3); Calcium 7.4 mg/dL (8.6-10.3); Creatinine, Serum 2.54 mg/dL (0.67-1.17); Globulin 1.7 g/dL (2-4); Potassium 4.5 mmol/L (3.5-5.0); Total Bilirubin 2.9 mg/dL (0.2-1.0); Total Protein 3.7 g/dL (6.4-8.9); eGFR CKD-EPI 27.3 (>60)
[2022-12-05] MEDS: Azithromycin 500 mg/250 ml NS 500 MG/250 ML BAG IVPB SCH (13:54)
[2022-12-05 14:34] LABS: Adenovirus Undetected (Undetected); Bordetella parapertussis Undetected (Undetected); Bordetella pertussis Undetected (Undetected); Chlamydophila pneumoniae Undetected (Undetected); Coronavirus 229E Undetected (Undetected); Coronavirus HKU1 Undetected (Undetected); Coronavirus NL63 Undetected (Undetected); Coronavirus OC43 Undetected (Undetected); Human Metapneumovirus Undetected (Undetected); Human Rhinovirus/Enterovirus Undetected (Undetected); Influenza A Undetected (Undetected); Influenza B Undetected (Undetected); Mycoplasmoides pneumoniae Undetected (Undetected); Parainfluenza Virus 1 Undetected (Undetected); Parainfluenza Virus 2 Undetected (Undetected); Parainfluenza Virus 3 Undetected (Undetected); Parainfluenza Virus 4 Undetected (Undetected); Respiratory Syncytial Virus Undetected (Undetected); Specimen Source NASOPHARYNGEAL SWAB
[2022-12-05 15:36] LABS: Calcium 7.5 mg/dL (8.6-10.3); Creatinine, Serum 2.52 mg/dL (0.67-1.17); Potassium 4.5 mmol/L (3.5-5.0); eGFR CKD-EPI 27.6 (>60)
[2022-12-05 16:02] LABS: PO2 Arterial 61 mmHg (80-100)
[2022-12-05 16:09] LABS: PCO2 Arterial <20 mmHg (35-45)
[2022-12-05 16:25] LABS: Dengue Fever IgG Antibody Negative (Negative); Dengue Fever IgM Antibody Negative (Negative)
[2022-12-05] MEDS: Enoxaparin 40 MG/0.4 ML SYR SUBCUT SCH (17:19)
[2022-12-05] MEDS: Thiamine 100 MG/ML 2 ml VIAL 100 MG in NS 0.9% 50 ML 50 ML IV SCH (18:24)
[2022-12-05] MEDS ORDERED: Succinylcholine 200 mg VIAL 20 mg/ml 10 ml VIAL (200 mg) ONE (18:55)
[2022-12-05] MEDS ORDERED: Rocuronium 50 mg VIAL 10 mg/ml 5 ml VIAL (50 mg) ONE (18:58)
[2022-12-05] MEDS ORDERED: Etomidate 40 mg/20 ml (2 MG/ML) 20 ml VIAL (40 mg) ONE (19:00)
[2022-12-05 21:04] LABS: Calcium 7.4 mg/dL (8.6-10.3); Creatinine, Serum 2.74 mg/dL (0.67-1.17); Potassium 4.6 mmol/L (3.5-5.0); eGFR CKD-EPI 24.9 (>60)
[2022-12-05 21:15] LABS: PCO2 Arterial 23 mmHg (35-45); PO2 Arterial 82 mmHg (80-100)
[2022-12-05] MEDS ORDERED: Albumin Human 5% 12.5 GM/250 ML BTL IV ONE (22:35)
[2022-12-05] MEDS ORDERED: NS 0.9% 500 ml BAG 500 ML IV ONE (22:36)
[2022-12-05] MEDS ORDERED: NS 0.9% 1000 ml BAG 1,000 ML IV SCH (23:30)
[2022-12-06 00:27] LABS: ADAMTS13 Activity Assay 25 % (>/=70)
[2022-12-06] MEDS: Propofol 10 mg/ml 100 ML BTL 1,000 MG/100 ML BTL IV SCH ×2 (00:38→08:22)
[2022-12-06 01:18] LABS: PCO2 Arterial 23 mmHg (35-45); PO2 Arterial 88 mmHg (80-100)
[2022-12-06 01:29] LABS: Albumin 2.2 g/dL (3.2-5.2); Albumin/Globulin Ratio 1.3 (1-3); Calcium 7.3 mg/dL (8.6-10.3); Creatinine, Serum 2.86 mg/dL (0.67-1.17); Globulin 1.7 g/dL (2-4); Potassium 4.9 mmol/L (3.5-5.0); Total Bilirubin 2.6 mg/dL (0.2-1.0); Total Protein 3.9 g/dL (6.4-8.9); eGFR CKD-EPI 23.7 (>60)
[2022-12-06] MEDS: Dextrose 50% Syringe 50 ml 25 GM/50 ML SYRINGE IV PUSH PRN ×4 (01:37→23:04)
[2022-12-06] MEDS: Norepinephrine *QUAD STRENGTH* 16 mg/250 mL NS per protocol IV SCH ×4 (01:52→21:14)
[2022-12-06] MEDS: Thiamine 100 MG/ML 2 ml VIAL 100 MG in NS 0.9% 50 ML 50 ML IV SCH ×3 (01:57→20:09)
[2022-12-06] MEDS: cefTRIAXone 2 GM ADDV.VIAL 2 GM in NS 0.9% 100 ml BAG 100 ML IV SCH (01:59)
[2022-12-06 05:00] LABS: Hematocrit 24 % (42-52); Hemoglobin 7.7 g/dL (14.0-18.0); Mean Corpuscular HGB Conc 33 g/dL (31-36); Mean Corpuscular Hemoglobin 29 pg (27-31); Mean Corpuscular Volume 89 fL (80-94); Mean Platelet Volume 7.7 fL (7.4-10.4); Platelet Count 71 10^3/uL (150-450); Red Blood Count 2.65 10^6 /uL (4.18-5.48); Red Cell Distribution Width 15 % (10-15); White Blood Count 13.5 10^3/uL (3.5-10.8)
[2022-12-06 05:01] LABS: PCO2 Arterial 25 mmHg (35-45); PO2 Arterial 88 mmHg (80-100)
[2022-12-06 05:27] LABS: Albumin 2.1 g/dL (3.2-5.2); Albumin/Globulin Ratio 1.2 (1-3); Calcium 7.1 mg/dL (8.6-10.3); Creatinine, Serum 3.11 mg/dL (0.67-1.17); Globulin 1.7 g/dL (2-4); Potassium 4.9 mmol/L (3.5-5.0); Total Bilirubin 2.5 mg/dL (0.2-1.0); Total Protein 3.8 g/dL (6.4-8.9); eGFR CKD-EPI 21.4 (>60)
[2022-12-06] MEDS ORDERED: Albumin Human 5% 12.5 GM/250 ML BTL IV ONE (05:45)
[2022-12-06 06:39] LABS: RBC Morphology Normal (Normal)
[2022-12-06 06:40] LABS: ABS Basophils 0.1 10^3/ul (0-0.2); ABS Eosinophils 0.2 10^3/ul (0-0.6); ABS Lymphocytes 1.1 10^3/ul (1.0-4.8); ABS Monocytes 1.5 10^3/ul (0-0.8); ABS Neutrophils 10.5 10^3/ul (1.5-7.7); ABS Nucleated RBC 0.1 10^3/ul; Eosinophil % 1.7 %; Lymphocyte % 8.4 %; Nucleated Red Blood Cells % 0.6
[2022-12-06] MEDS: Acetaminophen IV 1 GM/100ML 1,000 MG/100 ML BAG IV PRN ×2 (06:53→20:56)
[2022-12-06] MEDS: Phenylephrine DRIP 0.2 MG/ML in NS 0.9% 250 ML (PHA mix) IV SCH ×4 (07:23→21:22)
[2022-12-06] MEDS: D5NS 0.9% 1000 ml BAG 1,000 ML IV SCH ×2 (07:29→17:09)
[2022-12-06] MEDS ORDERED: Sodium Bicarbonate 8.4% SYR 50 ml SYRINGE IV ONE (07:54)
[2022-12-06] MEDS ORDERED: Sodium Bicarbonate 8.4% SYR 50 ml SYRINGE ONE (07:55)
[2022-12-06] MEDS ORDERED: Calcium Gluconate 2 GM in NS 0.9% 100 ml BAG 100 ML IV ONE (08:30)
[2022-12-06] MEDS ORDERED: Vancomycin 1,000 MG in NS 0.9% 250 ml 250 ML IVPB ONE (08:36)
[2022-12-06] MEDS ORDERED: Vancomycin per Pharmacy 1 EA NOTE FOLLOW UP SCH (09:00)
[2022-12-06] MEDS ORDERED: Zosyn per Pharmacy NOTE FOLLOW UP SCH (09:00)
[2022-12-06] MEDS ORDERED: Anidulafungin 200 MG in NS 0.9% 250 ml 200 ML IVPB ONE (09:00)
[2022-12-06] MEDS ORDERED: Vancomycin 1,500 MG in NS 0.9% 250 ml 250 ML IVPB ONE (09:30)
[2022-12-06 09:52] LABS: Albumin 48.4 mg/dL; Albumin/Globulin Ratio 0.77; Gamma Globulin 15.4 mg/dL; Protein,Total, Random Urine 110 mg/dL
[2022-12-06] MEDS ORDERED: Hydrocortisone INJ 100 MG/2ML 2 ML VIAL IV SCH (10:00)
[2022-12-06] MEDS: Chlorhexidine MOUTHWASH 0.12% 15 ML UDC SWISH SPIT SCH ×3 (10:07→20:10)
[2022-12-06] MEDS: Piperacillin/Tazobac ADVAN 3.375 GM in NS 0.9% 100 ml BAG 100 ML IV ONE ×2 (10:07→10:24)
[2022-12-06] MEDS: Pantoprazole VIAL 40 MG VIAL IV SCH (10:07)
[2022-12-06] MEDS: methylPREDNISolone SOD SUCC 125 mg 2 ML VIAL IV SCH ×2 (13:37→20:09)
[2022-12-06 13:54] LABS: Direct Bilirubin 1.8 mg/dL (0.03-0.18); Indirect Bilirubin 0.7 mg/dL (0.3-1.0)
[2022-12-06] MEDS: ZOSYN 3.375 GM Q8H per EXTENDED INFUSION IV SCH ×2 (14:27→22:13)
[2022-12-06 15:11] LABS: Corrected Retic Count 0.4 % (0.5-1.5); Hematocrit for Retic CNT 24 % (42-52); Immature Retic Fraction 0.41; RBC Retic Count 2.52 10^6/uL (4.18-5.48)
[2022-12-06] MEDS ORDERED: cefTRIAXone 2 gm/50 mL D5W 2 GM/50 ML BAG IV SCH (16:00)
[2022-12-06 16:23] LABS: CSF VDRL Negative (Negative)
[2022-12-06 18:03] LABS: HSV 1 PCR, CSF Negative (Negative); HSV 2 PCR, CSF Negative (Negative)
[2022-12-06] MEDS ORDERED: Immune Glob 10%-20GM GAMMAGLIQ 40 GM in Premix IV 0 ML IV SCH (18:30)
[2022-12-06 18:37] LABS: B. burgdorferi PCR Negative (Negative); B. garinii/B. afzellii PCR Negative (Negative); Lyme Disease Source CSF
[2022-12-06 18:49] LABS: Anaplasma phagocytophilum Negative (Negative); B. miyamotoi PCR, B Negative (Negative); Babesia divergens/MO-1 Negative (Negative); Babesia ducani Negative (Negative); Ehrlichia chaffeensis Negative (Negative); Ehrlichia ewingii/canis Negative (Negative); Ehrlichia muris eauclairensis Negative (Negative)
[2022-12-06] MEDS ORDERED: Vasopressin 100 UNITS in D5W 250 ml BAG 245 ML IV SCH (19:30)
[2022-12-06] MEDS ORDERED: D5W 250 ml BAG 250 ML ONE (19:35)
[2022-12-06] MEDS ORDERED: NS 0.9% 1000 ml BAG 1,000 ML IV ONE (19:43)
[2022-12-06] MEDS ORDERED: VASOPRESSIN IVPREMIX BTL 40 UNIT/100 ML BTL IV SCH (19:45)
[2022-12-06] MEDS: Enoxaparin 40 MG/0.4 ML SYR SUBCUT SCH (20:08)
[2022-12-07] MEDS: D5NS 0.9% 1000 ml BAG 1,000 ML IV SCH (01:05)
[2022-12-07] MEDS: Thiamine 100 MG/ML 2 ml VIAL 100 MG in NS 0.9% 50 ML 50 ML IV SCH (01:17)
[2022-12-07] MEDS: Phenylephrine DRIP 0.2 MG/ML in NS 0.9% 250 ML (PHA mix) IV SCH (01:36)
[2022-12-07] MEDS: Norepinephrine *QUAD STRENGTH* 16 mg/250 mL NS per protocol IV SCH (04:17)
[2022-12-07 05:00] LABS: Hematocrit 17 % (42-52); Mean Corpuscular HGB Conc 29 g/dL (31-36); Mean Corpuscular Hemoglobin 29 pg (27-31); Mean Corpuscular Volume 98 fL (80-94); Red Blood Count 1.72 10^6 /uL (4.18-5.48); Red Cell Distribution Width 17 % (10-15); White Blood Count 19.8 10^3/uL (3.5-10.8)
[2022-12-07 05:17] LABS: Mean Platelet Volume 8.3 fL (7.4-10.4); Platelet Count 56 10^3/uL (150-450)
[2022-12-07 05:20] LABS: RBC Morphology Normal (Normal)
[2022-12-07 05:21] LABS: ABS Basophils 0.2 10^3/ul (0-0.2); ABS Eosinophils 0.2 10^3/ul (0-0.6); ABS Lymphocytes 3.7 10^3/ul (1.0-4.8); ABS Monocytes 2.5 10^3/ul (0-0.8); ABS Neutrophils 12.8 10^3/ul (1.5-7.7); ABS Nucleated RBC 0.4 10^3/ul; Eosinophil % 1.1 %; Lymphocyte % 19.1 %; Nucleated Red Blood Cells % 1.8
[2022-12-07 05:45] LABS: Calcium 6.6 mg/dL (8.6-10.3); Creatinine, Serum 4.8 mg/dL (0.67-1.17); Direct Bilirubin 2.2 mg/dL (0.03-0.18); Indirect Bilirubin 0.7 mg/dL (0.3-1.0); Potassium 7.8 mmol/L (3.5-5.0); Total Bilirubin 2.9 mg/dL (0.2-1.0); Vancomycin Random 11.7 mcg/mL; eGFR CKD-EPI 12.7 (>60)
[2022-12-07] MEDS ORDERED: Ondansetron 4 mg VIAL 2 MG/ML 2 ml VIAL IV PRN (05:49)
[2022-12-07] MEDS ORDERED: Haloperidol 5 mg/ml SDV IV/IM 5 MG/ML AMP IV SLOW PU PRN (05:49)
[2022-12-07] MEDS ORDERED: Morphine 2 MG/ML SYRINGE IV PRN (05:49)
[2022-12-07] MEDS ORDERED: Morphine 2 MG/ML SYRINGE ONE (05:58)
[2022-12-07] MEDS ORDERED: LORazepam 2 mg VIAL 1 ml ONE (05:59)
[2022-12-07] MEDS ORDERED: Scopolamine 1 mg/72hr PATCH TRANSDERM SCH (06:00)
[2022-12-07] MEDS ORDERED: Vancomycin Random Level NOTE FOLLOW UP ONE (06:00)
[2022-12-07 06:04] VITALS: BP 95/57
[2022-12-07] MEDS: Morphine 2 MG/ML SYRINGE IV PRN (06:16)
[2022-12-07] MEDS ORDERED: Lorazepam PYXIS KEY PRN (06:22)
[2022-12-07] MEDS ORDERED: LORazepam 2 mg VIAL 1 ml IV PUSH ONE (06:23)
[2022-12-07] MEDS ORDERED: Anidulafungin 100 MG in NS 0.9% 100 ml BAG 100 ML IVPB SCH (09:00)
[2022-12-10 00:25] LABS: Complement C3 70 mg/dL (75 - 175)
[2022-12-10 14:22] LABS: Beta 2 Glycoprotein IgG <9.4 U/mL
[2022-12-10 17:36] LABS: Phospholipid Ab IgG < 9.4 GPL; Phospholipid Ab IgM, S < 9.4 MPL
[2022-12-10 17:36] LABS: Phospholipid Ab IgG < 9.4 GPL; Phospholipid Ab IgM, S < 9.4 MPL
[2022-12-12 17:10] LABS: Anti-Glial/Neuronal Nuc Ab-1 A Negative (Negative); Anti-Neuronal Nuclear Ab Type1 Negative (Negative); Anti-Neuronal Nuclear Ab Type2 Negative (Negative); Anti-Neuronal Nuclear Ab Type3 Negative (Negative); CRMP-5 IgG Antibody Negative (Negative); IFA Notes None.; Purkinje Cell Cytoplasm Type 1 Negative (Negative); Purkinje Cell Cytoplasm Type 2 Negative (Negative)
== END 2022-12-07 07:23 | disposition expired | DRG 871 ==
LOC: EDHOLD 03:28 → ED 03:28 → MEDTELE 11:03 → SUATTDRO 11:58 → ICU 11:58 → MEDTELE 12:36 → ICU 12-03 00:44
PROVIDERS: ADMIT Student in an Organized Health Care Education/Training Program; ATTEND Internal Medicine